=== PATIENT | male | born 1985 | race Caucasian/White ===

== ENCOUNTER 2018-02-14 12:06 | Emergency (ER) | payer MEDICAID, SELFPAY ==
[2018-02-14 12:12] VITALS: BP 148/94; PULSE 115; RESP 20; TEMP 36; O2SAT 97
--- NOTE | 2018-02-14 12:51 | ED.GENADUL_ITS ---
Disposition Clinical Impression: Migraine Disposition: HOME Condition: Good Instructions: Migraine Headache (ED) Additional Instructions: Drink plenty of fluids and get plenty of rest. Take Excedrin, Motrin or Tylenol as needed and directed for headache. Follow-up with your primary care doctor within the next week. You should receive a call from care management regarding a follow-up appointment. Return to the emergency department with any worsening or new concerning symptoms. Forms: Work Release Medical Decision Making - Medical Decision Making 1245 -- 32-year-old male who was recently released from senior care after being incarcerated for the past 8 years and with a history of migraine headaches for several years who presents with what he describes as his usual migraine this morning. States he is here today for work note and treatment for his migraine as they did not send him home with his Excedrin when he was released from senior living recently. Admits to vomiting. Denies fever, neck pain or blurry vision. Vitals within normal limits. No focal deficits. I do not see any indication for imaging or further workup at this time as his pain is consistent with his usual migraine, he has normal neurological exam, and no signs of meningismus. We will place an IV, bolus IV fluids, Compazine, Benadryl and Toradol and reassess. 1400 -- patient is standing in doorway fully dressed and is requesting to go home. He states his headache is resolved and would like to go home. Patient does not have a primary care doctor. Patient placed on care management list to arrange for follow-up appointment within the next 1-2 weeks for reevaluation. He was instructed to return to the ER with any worsening or new concerning symptoms. Patient appeared nontoxic, in no acute distress and appeared more comfortable compared to arrival and was able to ambulate easily out of the emergency department. History of Present Illness - General Chief complaint: Headache Stated complaint: MIGRAINE Time Seen by Provider: 02/14/18 12:08 Source: patient Mode of arrival: ambulatory Limitations: no limitations - History of Present Illness Initial comments: Pt is a 32yo M who presents to the ED w/ a c/o migraine headache since this morning. Pt has a h/o migraines and states this feels similar to his usual. Patient states his headache started this morning in his forehead and then spread out to both sides which is his usual migraine. States the headache is currently 7/10. He admits to vomiting 2 times. He took ibuprofen 8 AM without relief. Patient states he has 2 migraines monthly. Denies blurry vision, neck pain or fever. - Related Data HydrOXYzine PAMOATE [Vistaril] 1 cap PO HS 02/14/18 Ibuprofen 2 tab PO Q6H PRN 02/14/18 Allergies Allergy/AdvReac Type Severity Reaction Status Date / Time No Known Allergies Allergy Unverified 02/14/18 12:14 Review of Systems Constitutional: denies: chills, fever Eyes: denies: eye pain ENT: denies: ear pain, dental pain Respiratory: denies: cough, shortness of breath Cardiovascular: denies: chest pain, dyspnea on exertion Gastrointestinal: nausea, vomiting. denies: abdominal pain Genitourinary: denies: urgency, dysuria, frequency Musculoskeletal: denies: back pain Skin: denies: rash, lesions Neurological: denies: headache, weakness, numbness Past Medical History - Past Medical History Migraine headaches Surgical history: no surgical history Psychiatric history: anxiety - Social History Smoking status: current everyday smoker Alcohol use: none Drug use: none General Exam - General Limitations: no limitations General appearance: alert, in no apparent distress - Eye Eye exam: Present: EOMI - Respiratory Respiratory exam: Present: normal lung sounds bilaterally. Absent: respiratory distress, wheezes, rales, rhonchi, stridor - Cardiovascular Cardiovascular Exam: Present: regular rate. Absent: normal rhythm, bradycardia , tachycardia - GI/Abdominal GI/Abdominal exam: Present: soft, normal bowel sounds. Absent: distended, tenderness, guarding, rebound, rigid - Neurological Exam Neurological exam: Present: alert, oriented X3, CN II-XII intact, other (MS 5/5 b/l UE/LE ). Absent: motor sensory deficit - Psychiatric Psychiatric exam: Present: normal affect - Skin Skin exam: Present: warm, dry, intact Course Vital Signs - 24 hr 02/14/18 12:12 Temperature 96.8 F L Pulse 115 H Respiratory 20 Rate Blood Pressure 148/94 Pulse Oximetry 97
[2018-02-14] MEDS: Ketorolac 30 MG/ML VIAL IVP (13:00)
[2018-02-14] MEDS: diphenhydrAMINE 50 MG/ML VIAL 25 MG IVP (13:02)
[2018-02-14] MEDS: Prochlorperazine 10 MG/2 ML VIAL IVP (13:03)
--- NOTE | 2018-02-17 08:36 | PDOC.ERCMPRO ---
Care Management Progress Note 02/17-Dr. Garner requested assistance with a PCP (Dr. Villatoro makeup sales consultant) appt in two weeks for migraine headache. Referral faxed to Dr. Villatoro's office this am.
--- NOTE | 2018-02-17 08:37 | CMPROGNOTE_ITS ---
Care Management Progress Note 02/17-Dr. Garner requested assistance with a PCP (Dr. Villatoro financial foundations associate) appt in two weeks for migraine headache. Referral faxed to Dr. Villatoro's office this am.
== END 2018-02-14 14:11 | disposition home or self-care (01) ==
PROVIDERS: Emergency Provider Physician Assistant
DX: G43.909 Migraine, unspecified, not intractable, without status migrainosus (principal)
CPT/HCPCS: 36415; 96374; 96375; 99284; J0780; J1200; J1885

== ENCOUNTER 2019-12-22 13:04 | Emergency (ER) | payer MEDICAID, SELFPAY ==
[2019-12-22 13:21] VITALS: BP 120/82; PULSE 90; TEMP 36.9; O2SAT 97
--- NOTE | 2019-12-22 13:38 | CMSP_ITS ---
- If Service Date Differs Date of service: 12/22/19 Time of Service: 13:38 Care Management Safety Plan Chief Complaint: Patient is a 34 year old male who resides at the [facility] in [facility]. He presents today in the ED for depression, feeling overwhelmed, and passive suicidal ideation without intent or plan. He reports numerous stressors, including legal issues, concerns for his mom's health, and a recent break-up with his girlfriend. Dedrick is evaluated by Farhana, [facility] safe and vault installer, via telehealth. He is able to contract for safety, so he is returning home. He will follow-up with his PCP and with Kinga Duran aprn, his [facility] provider, as scheduled. VOLUNTARY FOR INPATIENT PSYCHIATRIC STABILIZATION. Patient is appropriate in all interactions since arriving at [facility]; Patient has demonstrated appropriate coping and communication skills, has articulated his needs and concerns and is fully engaged during staff interactions. Safety plan has been established with patient, and care team, to adhere to patient goals, identify restrictions based on behavioral status, address nutrition, and determine allowed personal belongings, tools for hygiene and personal care. Determine level of activity including ambulation, level of supervision, visitors, and determine privileges based on behaviors and level of engagement by patient. SAFETY PLAN: 1. Will remain on suicide precautions. In Paper Clothes 2. Will remain in room under direct supervision of one-on-one staff at all times provided by [employer]; SAMUEL, FINANCIAL INVESTIGATOR career development coordinator. 3. May have paper cups, plates, finger foods as well as a cardboard spoon with which to eat meals. 4. Follow [facility] Management of the Admitted Behavioral Health Patient policy. 5. Comfort bath system only. 6. No personal belongings 7. Visitors-Only his counselor who accompanies him to the ED. 8. Activities: None while in the ED. 9. Bathroom privileges: While in the ED, must be accompanied by staff. If patient is moved to Med/Surg, he will be allowed to use the bathroom in his room without supervision. 10. Phone: No phone privileges at this time. 11. Due to VOLUNTARY status, if patient wishes to leave [facility], the [facility] ditch worker must be contacted to re-evaluate patient prior to patient exiting the building. Patient is currently voluntarily at [facility] and seeking inpatient admission when a bed becomes available. [facility] Frontline Hand Picker will continue seeking placement. Please contact the Wine Pasteurizer Water Resource Manager ([phone]) and [facility] Hand Picker ([phone]) for any needed changes in the Safety Plan. Safety plan has been provided to interdepartmental care team.
[2019-12-22 14:03] LABS: Abs Immature Grans 0.02 k/cumm (0.0-0.09); Absolute Basophil Count 0.04 k/cumm (0.0-0.2); Absolute Eosinophil Count 0.09 k/cumm (0.0-0.7); Absolute Lymphocyte Count 2.64 k/cumm (1.2-3.4); Absolute Neutrophil Count 6.63 k/cumm (1.2-6.7); Basophils % 0.4; Eosinophils % 0.9; HCT 42.2 % (40.0-50.0); HGB 14.6 g/dL (13.5-17.5); Immature Grans % 0.2 %; Lymphocytes % 26.3; Mean Corp. HGB Concentration 34.6 g/dL (32.0-36.0); Mean Corpuscular Hemoglobin 31.6 pg (27.0-33.0); Mean Corpuscular Volume 91.3 fL (80-95); Mean Platelet Volume 9.5 fL (8.0-11.0); Neutrophils % 66.2; Platelet Count 379 x1000/uL (130-400); RBC 4.62 m/cumm (4.50-6.00); RBC Distribution Width 13.6 % (11.8-14.1); White Blood Cell Count 10.02 k/cumm (4.4-10.8)
--- NOTE | 2019-12-22 14:05 | ED.GENADUL_ITS ---
Discharge Plan Disposition Patient Disposition: HOME Condition: Stable Discharge Details Chief Complaint: PsychEval Clinical Impression: Depression Primary Care Provider: Mandy Vieira ED Provider: Ehsan Salas Home Meds and New Rx's Prescriptions: Continued ibuprofen 200 MG tablet 2 tab PO Q6H PRNRF: 0 quetiapine [Seroquel] 100 mg Tablet 100 mg PO QHS RF: 0 aripiprazole [Abilify] 30 mg Tablet 50 mg PO DAILY RF: 0 buprenorphine-naloxone [Suboxone] 8-2 mg Film 1 film SUBLINGUAL DAILY RF: 0 Discharge Instructions Instructions: Depression (ED) Additional Instructions: Please contact your primary care physician to arrange follow-up. Please follow-up with [facility] services. Return to the ER for any worsening or new concerning symptoms. Referrals: [facility] [Provider Group] Mandy Vieira [Primary Care Provider] - Discharge Data Discharge Date/Time-TO BE ENTERED AT DEPARTURE: 12/22/19 14:52 Medical Decision Making 1400??34-year-old male with depression here with significant life stressors and feeling of suicidality that was fleeting today. Patient is not currently suicidal. Care management was notified and has developed care plan. One-to-one patient observation established. Plan to obtain screening labs and consult designated agency crisis screener to evaluate the patient. --Patient evaluated by crisis screener who feels patient is safe for discharge and that inpatient psychiatric treatment is not indicated. They will arrange for outpatient follow-up. HPI General Mode of arrival: ambulatory . Date/Time Provider Initiated Documentation: 12/22/19 13:20 . Limitations to Documentation: no limitations . Information obtained by: patient . HPI Narrative: 34-year-old male with history of depression presents with chief complaint of depression and feelings of suicidality. Patient notes he is had significant life stressors recently. He states that his mom is sick and not willing to seek medical treatment. His girlfriend broke up with him recently. He is recently been incarcerated and is now living in transitional housing. He expressed to his counselor today that he was feeling overwhelmed and had fleeting thoughts of suicidality. He states he is not currently suicidal. No associated homicidality. No hallucinations. Symptoms were moderate with no modifiers and now resolved. Related Data Home Medications Medication Instructions Recorded Confirmed ibuprofen 2 tab PO Q6H PRN 02/14/18 12/22/19 aripiprazole [Abilify] 50 mg PO DAILY 12/22/19 12/22/19 buprenorphine-naloxone [Suboxone] 1 film SUBLINGUAL DAILY 12/22/19 12/22/19 quetiapine [Seroquel] 100 mg PO QHS 12/22/19 12/22/19 Allergies Allergy/AdvReac Type Severity Reaction Status Date / Time No Known Allergies Allergy Unverified 12/22/19 13:28 General Stated Complaint: PsychEval NURIA: 2 Review of Systems All systems reviewed & are unremarkable except as noted in HPI and below Constitutional Constitutional: Denies fever(s) Psychiatric Psychiatric: Reports as per HPI [facility] Social History Smoking/Tobacco Use Status: Current every day Tobacco Type: cigarettes Alcohol Intake: never Substance use type: former substance user Do you feel safe at home: Yes Do you feel safe in your relationship?: Yes Exam Const General: cooperative and no acute distress HENMT Mouth: moist mucous membranes Eyes Conjunctivae: normal conjunctivae Sclera: normal sclerae Resp Auscultation: clear to auscultation bilaterally, no rales, no rhonchi and no wheezes Cardio Jugular venous pressure: no JVD Rate: regular rate and not tachycardic Rhythm: regular rhythm GI Palpation: soft, not firm, no guarding, no masses, not rigid and nontender Skin General skin exam: no rashes or lesions noted Neuro General: patient alert, patient awake, patient oriented x3 and tone normal Extrem General: no edema Psych Appearance: grossly normal Mental Status: mental status grossly normal and other (Depression) Mood: other (Depression) Affect: normal affect Attitude: cooperative Thought Content: normal Insight: insight good Judgment: judgment good Other: Nonsuicidal at this time Course Vital Signs Vital signs: Vital Signs Temperature 36.9 C 12/22/19 13:21 Pulse 90 12/22/19 13:21 Blood Pressure 120/82 12/22/19 13:21 Pulse Oximetry 97 12/22/19 13:21 Temperature 36.9 C 12/22/19 13:21 Temperature Source Temporal Artery Scan 12/22/19 13:21 Pulse 90 12/22/19 13:21 Respiratory Effort Non-Labored 12/22/19 13:25 Blood Pressure 120/82 12/22/19 13:21 Blood Pressure Position Sitting 12/22/19 13:21 Pulse Oximetry 97 12/22/19 13:21 Oxygen Delivery Method Room Air 12/22/19 13:21 Oxygen Flow Rate 0 12/22/19 13:21 Pain Level 0 12/22/19 13:21 Lab/Test Results Lab/Test Results: Laboratory Tests Range/Units 12/22/19 13:50 WBC (4.4-10.8) k/cumm 10.02 RBC (4.50-6.00) m/cumm 4.62 Hgb (13.5-17.5) g/dL 14.6 Hct (40.0-50.0) % 42.2 MCV (80-95) fL 91.3 MCH (27.0-33.0) pg 31.6 MCHC (32.0-36.0) g/dL 34.6 RDW (11.8-14.1) % 13.6 Plt Count (130-400) x1000/uL 379 MPV (8.0-11.0) fL 9.5 Immature Gran % % 0.2 Neutrophils % 66.2 Lymphocytes % 26.3 Monocytes % 6.0 Eosinophils % 0.9 Basophils % 0.4 Absolute Neutrophils (1.2-6.7) k/cumm 6.63 Absolute Lymphocytes (1.2-3.4) k/cumm 2.64 Absolute Monocytes (0.11-0.7) k/cumm 0.60 Absolute Eosinophils (0.0-0.7) k/cumm 0.09 Absolute Basophils (0.0-0.2) k/cumm 0.04
[2019-12-22 14:09] LABS: *AMPHETAMINES SCREEN URINE Negative (Negative); *BARBITURATES SCREEN URINE Negative (Negative); *BENZODIAZEPINES SCREEN URINE Negative (Negative); Cannabinoids THC Negative (Negative); Cocaine Screen,Urine Negative (Negative); METHADONE URINE SCREEN Negative (Negative); OPIATES URINE SCREEN Negative (Negative)
[2019-12-22 14:19] LABS: Tricyclic Antidepressants Negative (Negative)
[2019-12-22 14:32] LABS: ALT 19 U/L (16-63); AST 18 U/L (15-37); Albumin 4.3 g/dL (3.4-5.0); Alkaline Phosphatase 86 U/L (46-116); Anion Gap 6.9 mmol/L (3-11); BUN 10 mg/dL (7-18); Bilirubin, Total 0.3 mg/dL (0.2-1.0); CO2 31.1 mmol/L (21.0-32.0); CREATININE 0.94 mg/dL (0.70-1.30); Calcium 9.1 mg/dL (8.5-10.1); Chloride 101 mmol/L (98-107); Glucose 86 mg/dL (74-106); Potassium 3.7 mmol/L (3.5-5.1); Sodium 139 mmol/L (136-145)
[2019-12-22 14:49] LABS: Acetaminophen < 2 ug/mL (10-30)
--- NOTE | 2019-12-22 15:12 | PDOC.MHCN ---
Date of service: 12/22/19 Time of Service: 15:12 Mental Health Crisis Note Presenting Issue How did you arrive at the ED and why did you come: Dedrick was brought to the ER via his case making machine operator for the home he is staying at. He came due to having fleeting thoughts of SI this am. Precipitating Factors Dedrick admits to having a thought earlier today but shared he came up with a safety plan on his own right after and that the thought left as quickly as it came. He is not presenting as having any delusions at this time. He seems to have good insight and judgment and his risk to self is low. Disposition BEHAVIOR: Cooperative and engaged. EYE CONTACT: good MOOD: Stressed due to life stressors and consequences for his choices. Otherwise normal. AFFECT: withing normal range APPETITE: Reports his appetitie has been poor SLEEP(trouble falling/staying asleep: Reports sleep has been good. Plan Dedrick is going to go home, take a shower, watch a movie and call his mother. He has a F/U with his PMHNP on Saturday and his PCP next Saturday. He was given [facility]'s number and encouraged to call if he needs support. Also asked the ER to give him an ER business card for his [employer]. No other f/u necessary. Signature Clinician's Name/Title: Farhana Cross MS, [facility] Emergency Services Clinician
== END 2019-12-22 14:52 | disposition home or self-care (01) ==
PROVIDERS: Emergency Provider Student in an Organized Health Care Education/Training Program; PCP Nurse Practitioner Family
DX: F32.9 Major depressive disorder, single episode, unspecified (principal); R45.851 Suicidal ideations; Z63.79 Other stressful life events affecting family and household
CPT/HCPCS: 36415; 80053; 80307; 99285; 80329; 84443; 85025; 99283

== ENCOUNTER 2020-09-07 14:38 | Outpatient (REF) | payer MEDICAID, SELFPAY ==
[2020-09-09 14:42] LABS: COVID-19 RT-PCR UVMMC Result Negative (Negative)
== END 2020-09-07 14:39 | disposition home or self-care (01) ==
LOC: NCHCN 14:38
PROVIDERS: PCP Nurse Practitioner Family; Visit Provider Family Medicine
DX: Z20.822 Contact with and (suspected) exposure to COVID-19 (principal); J06.9 Acute upper respiratory infection, unspecified
CPT/HCPCS: U0003

== ENCOUNTER 2020-10-16 09:15 | Emergency (ER) | payer MEDICAID, SELFPAY ==
[2020-10-16 09:17] VITALS: BP 145/93; PULSE 101; RESP 18; TEMP 36.7; O2SAT 94
--- NOTE | 2020-10-16 09:41 | ED.GENADUL_ITS ---
Discharge Plan Disposition Patient Disposition: HOME Condition: Stable Discharge Details Clinical Impression: Back pain Primary Care Provider: Mandy Vieira ED Provider: Holland Esteves Home Meds and New Rx's Prescriptions: New naproxen [Naprosyn] 500 mg tablet 500 mg PO BID PRNQty: 20 RF: 0 Continued quetiapine [Seroquel] 100 mg Tablet 100 mg PO QHS RF: 0 aripiprazole [Abilify] 30 mg Tablet 15 mg PO DAILY RF: 0 buprenorphine-naloxone [Suboxone] 8-2 mg Film 1.5 film SUBLINGUAL DAILY RF: 0 Discontinued ibuprofen 200 MG tablet 2 tab PO Q6H PRNRF: 0 Discharge Instructions Instructions: Back Pain (ED) Additional Instructions: Naprosyn as directed. Gentle stretching as tolerated. Cool and/or warm compresses every 2 hours for 20 minutes. [id number] Tylenol as directed. I have given you a work note through Saturday and a referral to physical therapy. Please watch for new or worsening symptoms and return to the ER for any concerns. I would like you to contact your primary care provider tomorrow to discuss outpatient reevaluation. Stand Alone Forms: Physical Therapy Referral, Work Release Medical Decision Making 35-year-old gentleman, presented to the ER for sudden right lower back pain that occurred when he was lifting out the back of a truck. He appears well, nontoxic, no acute distress. Neurologically intact. Symptoms are not consistent with epidural abscess, cauda equina, etc. Given he has no midline point tenderness or bony point tenderness, I do believe that the x-ray is of little value today. Patient is in agreement. We discussed options. She is agreeable to IM Toradol, prescription of Naprosyn, and physical therapy referral. I will provide him a work note through Saturday with the plan of returning to work on Saturday. Patient has no additional questions or concerns and is comfortable with this plan. Medical Records Medical records reviewed: Yes I reviewed the patient's medical records. HPI General Mode of arrival: ambulatory . Date/Time Provider Initiated Documentation: 10/16/20 09:15 . Limitations to Documentation: no limitations . Information obtained by: patient . HPI Narrative: This is a 35-year-old male, current smoker, former substance abuse now taking Suboxone daily. He reports that 2 days ago he was pulling the back end of a truck all, bent over, and felt a pop in severe pain in his right lower back. He has taken [id number] Excedrin which is only helped minimally. He reports the pain does not radiate anywhere, worse with movement. He denies any other injury, history of back issues, fever, abdominal pain, IV drug use, change in bowel or bladder function, numbness, tingling, weakness. Patient works Saturday through Saturday and is concerned about working the next couple of days, requesting work note. Related Data Home Medications Medication Instructions Recorded Confirmed aripiprazole [Abilify] 15 mg PO DAILY 12/22/19 10/16/20 buprenorphine-naloxone [Suboxone] 1.5 film SUBLINGUAL DAILY 12/22/19 10/16/20 quetiapine [Seroquel] 100 mg PO QHS 12/22/19 12/22/19 naproxen [Naprosyn] 500 mg PO BID PRN #20 tab 10/16/20 Previous Rx's Medication Instructions Recorded naproxen [Naprosyn] 500 mg PO BID PRN #20 tab 10/16/20 Allergies Allergy/AdvReac Type Severity Reaction Status Date / Time No Known Allergies Allergy Unverified 10/16/20 09:21 General Stated Complaint: Nk/Back Pain NURIA: 3 Review of Systems Constitutional Constitutional: Denies fever(s) and Denies weakness Cardiovascular Cardiovascular: Denies chest pain and Denies dyspnea Respiratory Respiratory: Denies dyspnea Gastrointestinal Gastrointestinal: Denies abdominal pain, Denies fecal incontinence, Denies nausea and Denies vomiting Genitourinary Genitourinary: Denies urinary incontinence Musculoskeletal Musculoskeletal: Reports back pain, Denies muscle cramps, Denies numbness, Reports stiffness, Denies tingling and Reports other (Denies spasm) Integumentary/Breasts Skin/Breast: Denies rash Neurologic Neurologic: Denies numbness, Denies tingling and Denies weakness [facility] Social History Smoking/Tobacco Use Status: Current every day Tobacco Type: cigarettes Smoking risk assessment performed?: Yes Alcohol Intake: never Drug use: Current Sobriety Substance use type: former substance user Do you feel safe at home: Yes Do you feel safe in your relationship?: Yes Exam Const General: cooperative, healthy appearing, comfortable and no acute distress Orientation: alert, awake and oriented x3 HENMT Head: normal to inspection, normocephalic and atraumatic Eyes General: appearance normal, both eyes and all related structures Conjunctivae: conjunctivae normal Neck Neck: normal visual inspection, full ROM, trachea midline and supple Resp Effort & Inspection: normal respiratory effort and able to speak in complete sentences Auscultation: clear to auscultation bilaterally Cardio Rate: regular rate Rhythm: regular rhythm GI Palpation: soft, not firm, no guarding and nontender Back/Spine/Pelvis Back: no CVA tenderness and back tenderness Thoracic/Lumbar Spine: thoracic and lumbar spine normal to inspection, thoraco- lumbar ROM normal, pain with thoraco-lumbar ROM, paraspinal tenderness, No thoraco-lumbar spasm, No thoracic spinal tenderness, No lumbar spinal tenderness and straight leg raise positive (Right-sided 15 degrees) Pelvis: no pain with anterior-posterior compression and no pain with lateral compression Back/spine/pelvis image: 1. Diffuse right-sided lower lumbar discomfort. There is no midline point tenderness, warmth, erythema. Discomfort is worse over the SI joint. Skin is intact. Skin General skin exam: no rashes or lesions noted Neuro General: patient alert, patient awake, moves all extremities and no focal motor deficits Cognition: normal cognition Speech: speech normal Gait: antalgic Motor: muscle tone normal throughout Sensory Exam: no sensory deficits noted Extrem General: normal to inspection, full ROM and capillary refill normal Psych Appearance: grossly normal Mental Status: mental status grossly normal Course Vital Signs Vital signs: Vital Signs Temperature 36.7 C 10/16/20 09:17 Pulse 101 H 10/16/20 09:17 Respiratory Rate 18 10/16/20 09:17 Blood Pressure 145/93 H 10/16/20 09:17 Pulse Oximetry 94 10/16/20 09:17 Temperature 36.7 C 10/16/20 09:17 Temperature Source Skin 10/16/20 09:17 Pulse 101 H 10/16/20 09:17 Respiratory Rate 18 10/16/20 09:17 Respiratory Effort 10/16/20 09:24 Blood Pressure 145/93 H 10/16/20 09:17 Blood Pressure Position Standing 10/16/20 09:17 Pulse Oximetry 94 10/16/20 09:17 Oxygen Delivery Method Room Air 10/16/20 09:17 Oxygen Flow Rate 0 10/16/20 09:17 Pain Level 8 10/16/20 09:25
[2020-10-16] MEDS: Ketorolac 60 MG/2 ML VIAL IM (09:51)
== END 2020-10-16 09:55 | disposition home or self-care (01) ==
PROVIDERS: Emergency Provider Physician Assistant; PCP Nurse Practitioner Family
DX: M54.5 Low back pain (principal); X50.0XXA Overexertion from strenuous movement or load, initial encounter
CPT/HCPCS: 96372; 99284; 99283; J1885

== ENCOUNTER 2022-01-16 14:06 | Emergency (ER) | payer MEDICAID, SELFPAY ==
[2022-01-16 14:12] VITALS: BP 144/75; PULSE 102; RESP 18; TEMP 36.7; O2SAT 95
== END 2022-01-16 15:37 | disposition left before discharge ==
PROVIDERS: PCP Nurse Practitioner Family
DX: Z53.21 Procedure and treatment not carried out due to patient leaving prior to being seen by health care provider (principal)

== ENCOUNTER → 2022-01-17 01:14 | Outpatient (CLI) | payer MEDICAID, SELFPAY | PROVIDERS: PCP Nurse Practitioner Family; Visit Provider Family Medicine ==

== ENCOUNTER 2024-03-09 12:07 | Emergency (ER) | payer MEDICAID, SELFPAY ==
[2024-03-09 12:08] VITALS: BP 166/120; PULSE 98; RESP 24; TEMP 36.7
--- NOTE | 2024-03-09 12:29 | ED.GENADUL_ITS ---
Discharge Plan Disposition Patient Disposition: Home Condition: Stable Discharge Details Clinical Impression: Nausea & vomiting, Facial numbness Primary Care Provider: Unknown,Unknown ED Provider: Stephen Fleming Home Meds and New Rx's Prescriptions: Continued buprenorphine-naloxone [Suboxone] 8-2 mg Film 1.5 film SUBLINGUAL DAILY Discharge Instructions Additional Instructions: Your blood work did not show any concerning findings I would recommend following up with your primary care provider soon as you can If you feel more ill or have persistent symptoms or new symptoms such as changes in speech or weakness on one side of the body return to the emergency department for reevaluation HPI General Mode of arrival: ambulatory . Date/Time Provider Initiated Documentation: 03/09/24 12:08 . Limitations to Documentation: no limitations . Information obtained by: patient . History of Present Illness 39 year old M presents to the emergency department with the chief complaint of n/v, numb face, described as moderate, Patient started experiencing this hour(s) (3) and it has been now resolved. No relieving factors improve symptom(s), No exacerbating factors reported . Patient notes denies chest pain, fever/chills and shortness of breath. Related Data Home Medications ?Medication ?Instructions ?Recorded ?Confirmed buprenorphine 8 mg-naloxone 2 mg 1.5 film sublingual DAILY 12/22/19 03/09/24 sublingual film (Suboxone) Allergies Allergy/AdvReac Type Severity Reaction Status Date / Time clonidine Allergy Severe Verified 11/05/22 09:48 hydroxyzine Allergy Severe Verified 11/05/22 09:48 General Stated Complaint: GenMedical NURIA: 4 Review of Systems All systems reviewed & are unremarkable except as noted in HPI and below Constitutional Constitutional: Denies chills, Denies fever(s) and Denies weakness Cardiovascular Cardiovascular: Denies chest pain and Denies dyspnea Respiratory Respiratory: Denies cough and Denies dyspnea Gastrointestinal Gastrointestinal: Denies abdominal pain, Reports nausea and Reports vomiting Integumentary/Breasts Skin/Breast: Denies rash Neurologic Neurologic: Denies weakness Psychiatric Psychiatric: Denies depression Exam Const General: no acute distress Orientation: alert HENMT Head: normal to inspection Ears: external ears normal General nose exam: external nose normal Mouth: moist mucous membranes Eyes General: appearance normal, both eyes and all related structures Neck Neck: normal visual inspection Resp Effort & Inspection: normal respiratory effort and able to speak in complete sentences Cardio Rate: regular rate GI Palpation: soft and nontender Skin General skin exam: no rashes or lesions noted Neuro General: patient alert and patient oriented x3 Extrem General: normal to inspection Psych Mental Status: mental status grossly normal Course Vital Signs Vital signs: Vital Signs Temperature 36.7 C 03/09/24 12:08 Pulse 98 H 03/09/24 12:08 Respiratory Rate 03/09/24 12:08 Blood Pressure 166/120 H 03/09/24 12:08 Temperature 36.7 C 03/09/24 12:08 Temperature Source Temporal Artery Scan 03/09/24 12:08 Pulse 98 H 03/09/24 12:08 Respiratory Rate 03/09/24 12:08 Blood Pressure 166/120 H 03/09/24 12:08 Blood Pressure Position Sitting 03/09/24 12:08 Oxygen Delivery Method Room Air 03/09/24 12:08 Oxygen Flow Rate 0 03/09/24 12:08 Pain Level 0 03/09/24 12:08 Medical Decision Making 39-year-old male with a history of prior substance abuse on Suboxone currently sober, who comes in after an episode nausea vomiting in the right side of his face was numb for few minutes. He says he was feeling well all morning and was helping sweep the house near sarah litter when all of a sudden he started feeling nauseous and threw up a few times in the right side of his face felt numb for the patient. He denies ever having any weakness, changes in speech or vision. No chest pain, difficulty breathing or abdominal pain. He is currently asymptomatic. He is alert and oriented x 4 speaking clearly, he has no focal neurological deficits, cranial nerves II through XII are fully intact. He has no dental pain or facial swelling. Unclear etiology for his nausea vomiting with right-sided numbness. Given lack of other symptoms such as weakness or vision changes or speech changes speech does not seem consistent with TIA. Will check for electrolyte abnormalities that could account for some paresthesias and monitor. Patient remains asymptomatic and labs are unremarkable. Unclear cause for his nausea vomiting and right-sided facial numbness earlier but given he is asymptomatic now and story is not consistent with TIA do not feel any further workup is indicated. He is stable for discharge and will follow-up with his PCP and return precautions given Differential Diagnosis Differential Diagnosis: chemical exposure, electrolyte abnormality Lab Data Lab results reviewed: Yes I reviewed the patient's lab results. Quality:SDOH Health Related Social Needs: No Data to Display PFSH All Active Problems (Updated 03/09/24 @ 13:51 by Stephen Fleming MD) Facial numbness (Acute) Nausea & vomiting (Acute) Back pain (Acute) Medical History (Updated 03/09/24 @ 13:51 by Stephen Fleming MD) Epistaxis Chronic vertigo Social History Smoking/Tobacco Use Status: Current every day Tobacco Type: cigarettes Smoking risk assessment performed?: Yes Alcohol Intake: never Drug use: Current Sobriety Substance use type: former substance user and marijuana Do you feel safe at home: Yes Do you feel safe in your relationship?: Yes
[2024-03-09 12:32] VITALS: BP 166/120; PULSE 98; RESP 24; TEMP 36.7
[2024-03-09 13:12] LABS: Abs Immature Grans 0.02 10^3/uL (0.0-0.06); Absolute Basophil Count 0.07 10^3/uL (0.0-0.2); Absolute Eosinophil Count 0.06 10^3/uL (0.0-0.7); Absolute Lymphocyte Count 2.42 10^3/uL (1.2-3.4); Absolute Monocyte Count 0.63 10^3/uL (0.1-0.8); Absolute Neutrophil Count 5.44 10^3/uL (1.2-6.7); Basophils % 0.8 %; Eosinophils % 0.7 %; HCT 53.9 % (40.0-50.0); HGB 18.1 g/dL (13.5-17.5); Immature Grans % 0.2 %; MCH 34.8 pg (27.0-33.0); MCHC 33.6 % (32.0-36.0); MCV 104 fL (80-95); MPV 9.9 fL (8.0-11.0); Monocytes % 7.3 %; Platelet Count 406 10^3/uL (130-400); RDW 14.3 % (11.8-14.1); RDW-SD 55.7 fL; WBC 8.64 10^3/uL (4.4-10.8)
[2024-03-09 13:13] LABS: ALT 42 U/L (16-63); AST 36 U/L (15-37); Albumin 4.4 g/dL (3.4-5.0); Alkaline Phosphatase 113 U/L (46-116); Anion Gap 10.1 mmol/L (3-11); BUN 6 mg/dL (7-18); Bilirubin, Total 0.45 mg/dL (0.2-1.0); CO2 28.9 mmol/L (21.0-32.0); CREATININE 0.8 mg/dL (0.70-1.30); Calcium 9.9 mg/dL (8.5-10.1); Chloride 99 mmol/L (98-107); Estimated GFR 114.74 (mL/min/1.73m2); Glucose 93 mg/dL (74-106); Magnesium 1.8 mg/dL (1.8-2.4); Potassium 4.1 mmol/L (3.5-5.1); Sodium 138 mmol/L (136-145); Total Protein 8.9 g/dL (6.4-8.2)
--- OUTSIDE RECORDS SUMMARY | 2024-03-09 14:09 | XMS_ITS | Referral Summary ---
Author Organization [facility] Address [address] [place] [id number] Care Team Providers Care Survey Director Name Role Phone Unavailable Primary Care Provider Unavailabl e Social History Tobacco Use Types Packs/Day Years Used Date Smoking Tobacco: Never Assessed Sex and Gender Information Value Date Recorded Sex Assigned at Not on file Gender Identity Not on file Sexual Orientation Not on file Plan of Treatment Not on file
--- OUTSIDE RECORDS SUMMARY | 2024-03-09 14:09 | XMS_ITS | Encounter Summary ---
Author Organization [facility] Address [address] [place] [address] Care Team Providers Care Mill Tender Second Operator Name Role Phone Unavailable Primary Care Provider Unavailabl e Encounter Details Date Type Department Care Team (Late st Contact Info) Description 09/08/2020 Lab Requisition [facility] Pathology & Laboratory Medicine - [facility] [address] [place] [address] Outr Resulting Lab, Provider Social History Tobacco Use Types Packs/Day Years Used Date Smoking Tobacco: Never Assessed Sex and Gender Information Value Date Recorded Sex Assigned at Not on file Gender Identity Not on file Sexual Orientation Not on file documented as of this encounter Plan of Treatment Not on file documented as of this encounter Procedures Procedure Name Priority Date/Time Associated Diagnosis Comments ZZCOVID-19 TEST [facility] PCR Today 09/07/2020 14:00 EST COVID-19 TESTING Routine 09/07/2020 14:0 0 EST documented in this encounter Results * COVID-19 TEST [facility] PCR (09/07/2020 14:00 EST) Swab ENTIRE NASOPHARYNX / Unknown 09/07/2020 14:00 EST 09/08/2020 16:44 EST Provider Outr Resulting Lab MICROBIOLOGY - GENERAL ORDERABLES [facility] [address] [place] [address] * COVID-19 TESTING (09/07/2020 14:00 EST) COVID-19 rt-PCR Result Negative Negative 09/09/2020 14:35 EST [facility] Comment: This test has not been FDA cleared or approved. This test has been authorized by FDA under an EUA for use by authorized laboratories. This test has been authorized only for detection of nucleic acid from 2019-nCoV, not for any other viruses or pathogens. This test is only authorized for the duration of the declaration that circumstances exist justifying the authorization of emergency use of in vitro diagnostic tests for detection and/or diagnosis of 2019-nCoV under section 564(b)(1) of Act, 21 U.S.C ?? 360bbb-3(b) (1), unless the authorization is terminated or revoked sooner. Negative results do not preclude 2019-nCoV infection and should not be used as the sole basis for treatment or other patient management decisions. Negative results must be combined with clinical observations, patient history, and epidemiological information. This test was developed and its performance characteristics determined by [facility]. It has not been cleared or approved by the US Food and Drug Administration. FDA does not require this test to go through premarket FDA review. This test is used for clinical purposes. It should not be regarded as investigational or for research. This laboratory is certified under the Clinical Laboratory Improvement Amendments (CLIA) as qualified to perform high complexity clinical laboratory testing. This test is based on the [facility] COVID-19 Emergency Use Authorization (EUA) assay, with minor modification as defined by the FDA Performed on the [employer] 7 Flex RT-PCR System. Performing Lab [facility] Lab 09/09/2020 14:35 EST [facility] Swab 09/07/2020 14:0 0 EST 09/08/2020 16:44 EST Provider Outr Resulting Lab MICROBIOLOGY - GENERAL ORDERABLES [facility] [address] [place] [address] documented in this encounter Visit Diagnoses Not on filedocumented in this encounter
--- OUTSIDE RECORDS SUMMARY | 2024-03-09 14:09 | XMS_ITS | Clinical Summary ---
Author Organization [facility] Address [address] [place] [address] Care Team Providers Care Marketing [employer] Name Role Phone Unavailable Primary Care Provider Unavailabl e Social History Tobacco Use Types Packs/Day Years Used Date Smoking Tobacco: Never Assessed Sex and Gender Information Value Date Recorded Sex Assigned at Not on file Gender Identity Not on file Sexual Orientation Not on file Plan of Treatment Health Maintenance Due Date Last Done Comments Hepatitis C Screen 1984 Hepatitis B Vaccine (1 of 3 - 19+ 3-dose series) 03/05 COVID-19 Vaccine (2022-24 season) 2023
== END 2024-03-09 14:04 | disposition home or self-care (01) ==
LOC: ER 14:08
PROVIDERS: Emergency Provider Emergency Medicine
DX: R11.2 Nausea with vomiting, unspecified (principal); R20.0 Anesthesia of skin
CPT/HCPCS: 36415; 80053; 99283; 83735; 85025

== ENCOUNTER 2024-05-11 15:38 | Emergency (ER) | payer MEDICAID, SELFPAY ==
[2024-05-11 15:45] VITALS: BP 173/104; PULSE 96; RESP 16; TEMP 36.6; O2SAT 95
--- NOTE | 2024-05-11 15:45 | RT.EKG_ITS ---
APPROVED REPORT Exam: Resting ECG Reason for Exam: possible Lyme Patient Location: E HR:90 bpm ECG Measurements Heart Rate 90 AXIS GA 173 P 52 QRSd 101 QRS 29 QT 415 T 60 QTc 509 Conclusion Sinus rhythm...normal P axis, V-rate 60- 99 Probable left atrial enlargement...P >50mS, <-0.10mV V1 Left ventricular hypertrophy...multiple LVH criteria Prolonged QT interval...QTc >500mS
--- OUTSIDE RECORDS SUMMARY | 2024-05-11 15:47 | XMS_ITS | Clinical Summary ---
Author Organization [facility] Address [address] [place] [address] Care Team Providers Care Molder Labels Name Role Phone Unavailable Primary Care Provider [...]
--- OUTSIDE RECORDS SUMMARY | 2024-05-11 15:47 | XMS_ITS | Referral Summary ---
Author Organization [facility] Address [address] [place] [id number] Care Team Providers Care Florist Manager Name Role Phone Unavailable Primary Care Provider Unavailabl e Social History Tobacco Use Types Packs/Day Years Used Date Smoking Tobacco: Never Assessed Sex and Gender Information Value Date Recorded Sex Assigned at Not on file Gender Identity Not on file Sexual Orientation Not on file Plan of Treatment Not on file
--- OUTSIDE RECORDS SUMMARY | 2024-05-11 15:47 | XMS_ITS | Encounter Summary ---
Author Organization [facility] Address [address] [place] [address] Care Team Providers Care Frame Tender Name Role Phone Unavailable Primary Care Provider Unavailabl e Encounter Details Date Type Department Care Team (Late st Contact Info) Description 09/08/2020 Lab Requisition [facility] Pathology & Laboratory Medicine - [facility] [address] [place] [address] Outr Resulting Lab, Provider Social History Tobacco [...] Outr Resulting Lab MICROBIOLOGY - GENERAL ORDERABLES [facility] [address] [place] [address] * COVID-19 TESTING (09/07/2020 14:00 EST) COVID-19 rt-PCR Result Negative Negative 09/09/2020 14:35 EST [facility] Comment: This test has [...] developed and its performance characteristics determined by [facility]. It has not been cleared or [...] testing. This test is based on the [facility] COVID-19 Emergency Use Authorization (EUA) assay, with minor modification as defined by the FDA Performed on the [employer] 7 Flex RT-PCR System. Performing Lab [facility] Lab 09/09/2020 14:35 EST [facility] Swab 09/07/2020 14:0 0 EST 09/08/2020 16:44 EST Provider Outr Resulting Lab MICROBIOLOGY - GENERAL ORDERABLES [facility] [address] [place] [address] documented in this encounter Visit Diagnoses Not on filedocumented in this encounter
--- NOTE | 2024-05-11 15:50 | W.ED.GENAD ---
Discharge Plan Disposition Patient Disposition: Home Condition: Stable Discharge Details Clinical Impression: Tick bite Primary Care Provider: Unknown,Unknown ED Provider: Isidro Rocha Home Meds and New Rx's Prescriptions: New doxycycline hyclate 100 mg capsule 100 mg PO BID 21 Days Qty: 42 0RF Continued buprenorphine-naloxone [Suboxone] 8-2 mg Film 1.5 film SUBLINGUAL DAILY Discharge Instructions Instructions: Lyme disease, Doxycycline Additional Instructions: You were seen in the emergency department for your to take bites with some headache nausea and bodyaches. Going to empirically start you on doxycycline twice a day for 21 days, take this medicine with food, cover up if going out in the sun on this medicine. Your Lyme results should be back tomorrow and the other tickborne illnesses on the blood test should be back in 4 to 5 days, if all of these are negative see may discontinue doxycycline. Please use therapeutic dosing of Tylenol (acetamenophen) & Advil (ibuprofen) in an alternating fashion as follows: Take 1000mg of Tylenol every 6 hours without missing doses- that is 4 times per day. Half-Way in between the Tylenol dosings, take 400-600mg of Advil also on a 6 hour schedule, that is also 4 times per day. The daily maximum dosing of Tylenol is 4000mg, and the daily maximum dosing of Advil is 2400mg. This is safe to do for weeks. Please note that some common cold medications & prescription pain medications may contain acetamenophen and you need to read OTC drug labels and factor that in to maximum daily dosings. Please return to the emergency department for any palpitations, dizziness with near fainting, chest pain, worsening despite treatment HPI General Date/Time Provider Initiated Documentation: 05/11/24 15:50. HPI Narrative: 39 year-old male presents to ED today by POV/ambulating with a chief complaint of multiple tick bites, headaches, nausea/vomiting, cough, mild shortness of breath with onset over weeks- states he had red rings around a tick bite on L abdomen, and pulled another tick of his left arm a week ago. Quality described as generalized malaise, skin changes, no radiation to chest pain, palpitations, syncope, high fevers. Severity is described as moderate. Palliating factors include nothing specific. Provoking factors include nothing specific. Patient not anticoagulated. Related Data Home Medications ?Medication ?Instructions ?Recorded ?Confirmed buprenorphine 8 mg-naloxone 2 mg 1.5 film sublingual DAILY 12/22/19 05/11/24 sublingual film (Suboxone) doxycycline hyclate 100 mg capsule 100 mg PO BID 21 days #42 caps 05/11/24 Previous Rx's ?Medication ?Instructions ?Recorded doxycycline hyclate 100 mg capsule 100 mg PO BID 21 days #42 caps 05/11/24 Allergies Allergy/AdvReac Type Severity Reaction Status Date / Time clonidine Allergy Severe Other (See Verified 05/11/24 15:48 Comment) hydroxyzine Allergy Severe Other (See Verified 05/11/24 15:48 Comment) General Stated Complaint: InsectBite NURIA: 3 Review of Systems All systems reviewed & are unremarkable except as noted in HPI and below Exam Narrative Exam Narrative: GENERAL APPEARANCE: Well-nourished, non-toxic, awake and alert, atraumatic, no acute distress. SKIN: Warm, pink, dry, 2 healing minor tick bites 1 on the left bicep area 1 on the left abdomen, no overt erythema migrans at this time HEAD: Normocephalic, atraumatic, normal hair distribution for gender/age. EYES: Normal conjunctiva, no exudates on lids/lashes. ENT: Nares patent, no circumoral cyanosis, no facial swelling NECK: Supple, trachea midline, painless cervical ROM. LUNGS/CHEST: Lungs CTA bilaterally, non-labored respirations, normal A/P diameter, symmetrical expansion, no chest wall deformity HEART (CV/PV): Regular rate and rhythm without murmur, no peripheral edema, no JVD. ABDOMEN: Soft, non-distended, no guarding. MSK: Normal ROM, no swelling/deformity to bilateral UEs or LEs, moving all extremities without weakness, no cyanosis, spine midline without tenderness, normal curvature. NEURO: Mental Status AAOx4 - alert to person, place, time, events No facial droop, no forehead involvement. Motor: No focal weakness - strength 5/5 in bilateral UEs and LEs, proximal and distal, symmetric. Sensory: sensation intact to light touch globally. Gait normal: patient ambulated without ataxia into ED room. PSYCH: euthymic, cooperative, pleasant, appropriate speech Course Vital Signs Vital signs: Vital Signs Temperature 36.6 C 05/11/24 15:45 Pulse 96 H 05/11/24 15:45 Respiratory Rate 16 11/04/24 15:45 Blood Pressure 173/104 H 05/11/24 15:45 Pulse Oximetry 95 05/11/24 15:45 Temperature 36.6 C 05/11/24 15:45 Temperature Source Oral 05/11/24 15:45 Pulse 96 H 05/11/24 15:45 Respiratory Rate 16 05/11/24 15:45 Respiratory Effort Normal, Non-Labored 05/11/24 15:48 Blood Pressure 173/104 H 05/11/24 15:45 Blood Pressure Position Sitting 05/11/24 15:45 Pulse Oximetry 95 05/11/24 15:45 Oxygen Delivery Method Room Air 05/11/24 15:45 Oxygen Flow Rate 0 05/11/24 15:45 Pain Level 0 05/11/24 15:45 Medical Decision Making This dictation utilizes [id number] dictation software and may contain unedited grammatical errors. 39 year-old male presents to ED today by POV/ambulating with a chief complaint of multiple tick bites, headaches, nausea/vomiting, cough, mild shortness of breath with onset over weeks- states he had red rings around a tick bite on L abdomen, and pulled another tick of his left arm a week ago. Quality described as generalized malaise, skin changes, no radiation to chest pain, palpitations, syncope, high fevers. Severity is described as moderate. Palliating factors include nothing specific. Provoking factors include nothing specific. Patients' medical history: Noncontributory. Family and social history: Noncontributory. Pertinent exam findings / vital signs include patient is hypertensive but significant workup shows no evidence of endorgan damage-has 2 healing minor tick bites 1 on the left bicep area 1 on the left abdomen, no overt erythema migrans at this time, benign cardiopulmonary exam, benign abdomen. Differential / pathologies of concern include tickborne illness, URI, carditis or heart block. Diagnostic studies of: -CBC, CMP, serial troponins, lipase, COVID/flu/RSV PCR, EKG, chest x-ray. -CBC shows no leukocytosis or leukopenia, no actionable abnormality -CMP without actionable abnormality -Serial troponins negative -Lipase negative -Magnesium within normal limits -PCR swab negative -EKG shows normal sinus rhythm-no heart block -Chest x-ray is without acute pathology does show some hyperinflation likely due to tobacco use Interventions of: -I did prescribe the patient empiric doxycycline, advised that his tick results will come back soon and he could discontinue with negative results. ED Course/Assessment/Plan: 39-year-old male presents with multiple tick bites and systemic signs of illness including body aches, headache, starting empiric Lyme treatment, there is no evidence of any Lyme carditis or other abnormality on blood work, counseled the patient on doxycycline use, recommend he follow-up with his PCP for hypertension. Findings not consistent with Lyme carditis, toxic presentation, hypertensive emergency. Disposition of tick bite. Patient verbalized understanding of the plan and return to ED criteria and engaged in shared decision making. Medical Records Medical records reviewed: Yes I reviewed the patient's medical records. Imaging Data Radiologic Study: Attestation: I personally reviewed and interpreted this imaging study as follows: Imaging: X-Ray Radiologist's impression: EXAM: XR CHEST 2V PA LATERAL CLINICAL HISTORY: cough TECHNIQUE: 2D digital imaging was performed. Two views. COMPARISON: No exams were available for comparison FINDINGS: HEART: Normal size. Aorta: Not dilated. PULMONARY VASCULATURE: Normal. MEDIASTINUM: Unremarkable. LUNGS: Hyperinflated but clear. No infiltrate. PLEURAL SPACE: No pleural effusion or pneumothorax. BONE:Degenerative changes in the mid to lower thoracic spine. SOFT TISSUES: Unremarkable. IMPRESSION: Hyperinflation. No acute abnormality. Lab Data Lab results reviewed: Yes I reviewed the patient's lab results. Labs: Laboratory Tests Range/Units 05/11/24 05/11/24 05/11/24 16:02 16:33 17:40 WBC (4.4-10.8) 10^3/uL 8.26 RBC (4.36-5.78) 10^6/uL 5.54 Hgb (13.5-17.5) g/dL 18.0 H Hct (40.0-50.0) % 53.1 H MCV (80-95) fL 96 H MCH (27.0-33.0) pg 32.5 MCHC (32.0-36.0) % 33.9 RDW (11.8-14.1) % 14.3 H Plt Count (130-400) 10^3/uL 366 MPV (8.0-11.0) fL 9.5 Immature Gran % % 0.2 Neutrophils % % 45.2 Lymphocytes % % 45.5 Monocytes % % 7.1 Eosinophils % % 1.2 Basophils % % 0.8 Nucleated RBC % (0.0-0.3) % 0.0 Absolute Neutrophils (1.2-6.7) 10^3/uL 3.72 Absolute Lymphocytes (1.2-3.4) 10^3/uL 3.76 H Absolute Monocytes (0.1-0.8) 10^3/uL 0.59 Absolute Eosinophils (0.0-0.7) 10^3/uL 0.10 Absolute Basophils (0.0-0.2) 10^3/uL 0.07 Sodium (136-145) mmol/L 138 Potassium (3.5-5.1) mmol/L 3.8 Chloride (98-107) mmol/L 101 Carbon Dioxide (21.0-32.0) mmol/L 29.4 Anion Gap (3-11) mmol/L 7.6 BUN (7-18) mg/dL 9 Creatinine (0.70-1.30) mg/dL 0.9 Est GFR (CKD-EPI 2020) (mL/min/1.73m2) 110.73 Glucose (74-106) mg/dL 88 Calcium (8.5-10.1) mg/dL 10.2 H Magnesium (1.8-2.4) mg/dL 2.0 Total Bilirubin (0.2-1.0) mg/dL 0.41 AST (15-37) U/L 20 ALT (16-63) U/L 17 Alkaline Phosphatase (46-116) U/L 88 Troponin I (<or=76) ng/L 18 19 Total Protein (6.4-8.2) g/dL 8.9 H Albumin (3.4-5.0) g/dL 4.5 Lipase (16-77) U/L 23 COVID-19 Source Nasopharynx SARS-CoV-2 (PCR) (Negative) Negative Influenza Type A (PCR) (Negative) Negative Influenza Type B (PCR) (Negative) Negative RSV (PCR) (Negative) Negative Quality:SDOH Health Related Social Needs: No Data to Display PFSH All Active Problems (Updated 05/11/24 @ 18:29 by MAGALI Thomas) Tick bite (Acute) Back pain (Acute) Medical History (Updated 05/11/24 @ 18:29 by MAGALI Thomas) Epistaxis Chronic vertigo Social History Smoking/Tobacco Use Status: Current every day Tobacco Type: cigarettes Smoking risk assessment performed?: Yes Alcohol Intake: never Drug use: Current Sobriety Substance use type: former substance user and marijuana Do you feel safe at home: Yes Do you feel safe in your relationship?: Yes
--- NOTE | 2024-05-11 16:45 | DI.RAD_ITS ---
Exam(s) XR CHEST 2V PA LATERAL EXAM: XR CHEST 2V PA LATERAL CLINICAL HISTORY: cough TECHNIQUE: 2D digital imaging was performed. Two views. COMPARISON: No exams were available for comparison FINDINGS: HEART: Normal size. Aorta: Not dilated. PULMONARY VASCULATURE: Normal. MEDIASTINUM: Unremarkable. LUNGS: Hyperinflated but clear. No infiltrate. PLEURAL SPACE: No pleural effusion or pneumothorax. BONE:Degenerative changes in the mid to lower thoracic spine. SOFT TISSUES: Unremarkable. IMPRESSION: Hyperinflation. No acute abnormality. DATA REPOSITORY: RADIATION DOSE DELIVERED:
[2024-05-11 16:47] LABS: COVID-19 PCR Negative (Negative); Influenza A PCR Negative (Negative); Influenza B PCR Negative (Negative); RSV PCR Negative (Negative)
[2024-05-11 16:51] LABS: Source Nasopharynx
[2024-05-11 16:51] LABS: Abs Immature Grans 0.02 10^3/uL (0.0-0.06); Absolute Basophil Count 0.07 10^3/uL (0.0-0.2); Absolute Lymphocyte Count 3.76 10^3/uL (1.2-3.4); Absolute Monocyte Count 0.59 10^3/uL (0.1-0.8); Absolute Neutrophil Count 3.72 10^3/uL (1.2-6.7); Basophils % 0.8 %; Eosinophils % 1.2 %; HCT 53.1 % (40.0-50.0); Immature Grans % 0.2 %; Lymphocytes % 45.5 %; MCH 32.5 pg (27.0-33.0); MCHC 33.9 % (32.0-36.0); MCV 96 fL (80-95); MPV 9.5 fL (8.0-11.0); Monocytes % 7.1 %; Neutrophils % 45.2 %; Platelet Count 366 10^3/uL (130-400); RBC 5.54 10^6/uL (4.36-5.78); RDW 14.3 % (11.8-14.1); RDW-SD 51.5 fL; WBC 8.26 10^3/uL (4.4-10.8)
[2024-05-11 17:03] LABS: Lipase 23 U/L (16-77)
[2024-05-11 17:09] LABS: ALT 17 U/L (16-63); AST 20 U/L (15-37); Albumin 4.5 g/dL (3.4-5.0); Alkaline Phosphatase 88 U/L (46-116); Anion Gap 7.6 mmol/L (3-11); BUN 9 mg/dL (7-18); Bilirubin, Total 0.41 mg/dL (0.2-1.0); CO2 29.4 mmol/L (21.0-32.0); CREATININE 0.9 mg/dL (0.70-1.30); Calcium 10.2 mg/dL (8.5-10.1); Chloride 101 mmol/L (98-107); Estimated GFR 110.73 (mL/min/1.73m2); Glucose 88 mg/dL (74-106); Potassium 3.8 mmol/L (3.5-5.1); Sodium 138 mmol/L (136-145); Total Protein 8.9 g/dL (6.4-8.2); Troponin I 18 ng/L (<or=76)
[2024-05-11 17:37] VITALS: BP 196/112; PULSE 92; O2SAT 97
[2024-05-11 18:21] LABS: Troponin I 19 ng/L (<or=76)
[2024-05-11] MEDS: Doxycycline Hyclate 100 MG CAP PO (18:45)
[2024-05-11 19:37] VITALS: BP 179/131; PULSE 98; RESP 16; O2SAT 98
--- NOTE | 2024-05-12 13:01 | NUR.NOTE ---
pts chart opened to access if tick and lyme panel results were back, per pt request. Nursing Note:
[2024-05-13 10:52] LABS: Lyme Ab w Rflx to Lyme Confirm Negative (Negative)
[2024-05-15 15:05] LABS: Anaplasma phagocytophilum Negative (Negative); B. miyamotoi PCR Negative (Negative); Babesia divergens/MO-1 Negative (Negative); Babesia duncani Negative (Negative); Babesia microti Negative (Negative); Ehrlichia chaffeensis Negative (Negative); Ehrlichia ewingii/canis Negative (Negative); Ehrlichia muris eauclairensis Negative (Negative)
== END 2024-05-11 19:37 | disposition home or self-care (01) ==
PROVIDERS: Emergency Provider Physician Assistant
DX: S40.862A Insect bite (nonvenomous) of left upper arm, initial encounter (principal); S30.861A Insect bite (nonvenomous) of abdominal wall, initial encounter; R11.2 Nausea with vomiting, unspecified; R51.9 Headache, unspecified; M79.10 Myalgia, unspecified site; R94.31 Abnormal electrocardiogram [ECG] [EKG]; W57.XXXA Bitten or stung by nonvenomous insect and other nonvenomous arthropods, initial encounter; Y93.89 Activity, other specified; F17.210 Nicotine dependence, cigarettes, uncomplicated
CPT/HCPCS: 36415; 80053; 83690; 87637; 87798; 93005; 99285; 71046; 83735; 84484; 85025; 86618; 93010; 99284